=== PATIENT | male | born 1945 | race Caucasian/White ===

== ENCOUNTER → 2023-11-10 13:01 | Outpatient (REF) | payer OTHER, SELFPAY | LOC: RAD 13:01 | PROVIDERS: ATTENDING PHYSICIAN Physician Assistant Medical | DX: M81.0 Age-related osteoporosis without current pathological fracture (principal) | CPT/HCPCS: 77080 ==

== ENCOUNTER → 2024-01-21 09:54 | Outpatient (REF) | payer OTHER, SELFPAY | LOC: PAVMRI 09:54 | PROVIDERS: ATTENDING PHYSICIAN Physical Medicine & Rehabilitation; FAMILY PHYSICIAN Physician Assistant Medical | DX: M54.16 Radiculopathy, lumbar region (principal); M51.26 Other intervertebral disc displacement, lumbar region | CPT/HCPCS: 72148 ==

== ENCOUNTER → 2024-01-27 11:46 | Outpatient (REF) | payer OTHER, SELFPAY | LOC: HWCARD 11:46 | PROVIDERS: ATTENDING PHYSICIAN Physical Medicine & Rehabilitation; FAMILY PHYSICIAN Physician Assistant Medical | DX: Z01.818 Encounter for other preprocedural examination (principal) | CPT/HCPCS: 93005 ==

== ENCOUNTER → 2024-06-08 14:26 | Outpatient (REF) | payer OTHER, SELFPAY | LOC: RAD 14:26 | PROVIDERS: ATTENDING PHYSICIAN Physician Assistant Medical | DX: I83.893 Varicose veins of bilateral lower extremities with other complications (principal); Z98.890 Other specified postprocedural states | CPT/HCPCS: 93970 ==

== ENCOUNTER 2024-06-08 18:46 | Emergency (ER) | payer OTHER, SELFPAY ==
[2024-06-08 18:59] VITALS: BP 166/66
--- NOTE | 2024-06-08 19:05 | ED.GENMED ---
ED Provider Triage
-
Patient seen by provider in Triage?: Seen in Triage
Attestation: A medical screening examination has been initiated by a qualified medical provider. Based on the assessment performed at this time, it has been determined that an emergent medical condition may exist and the patient has been informed
that further medical evaluation and possible additional diagnostic testing may be needed.
HPI: 79-year-old male sent to the ER from outpatient radiology after he had an ultrasound earlier today that showed a popliteal vein DVT in the right lower extremity. This appears to be an unprovoked DVT. Patient notes a history of varicose vein
in the left lower extremity. Denies any trauma, focal weakness or numbness, color changes, recent surgeries, recent travel. Patient does have a history of Crohn's for which he is in remission on Entyvio. No previous GI bleeding or anemia. Will
check labs with anticipation of being discharged on anticoagulants and close follow-up with primary care provider.
GENERAL: Alert , in no apparent distress
EYE: No visual abnormalities.
NECK: Trachea midline
ENT: No visible abnormalities.
LUNGS: No acute respiratory distress
NEUROLOGICAL: Alert and oriented
SKIN: Skin intact. No visible changes.
MUSCULOSKELETAL: Moving extremities normally
PSYCH: Normal and appropriate interaction.
This is a medical evaluation conducted in person to initiate diagnostic evaluation and provide initial therapeutics. Please see further documentation by the treating clinician.
History of Present Illness
General
Chief Complaint: DVT/Possible Blood Clot
Source: patient
Time Seen by Provider: 06/08/24 20:13
History of Present Illness
History of Present Illness:
79-year-old male presenting emergency department for evaluation after he was at outpatient radiology and received an ultrasound of the right lower extremity which showed a DVT to the right popliteal vein. Patient has a history of varicose
veins/spider veins and had noticed some mild and swelling to the right lower extremity which is what prompted him to get the ultrasound. Patient is adamant he does not have any chest pain, shortness of breath, cough, pleurisy, hemoptysis,
exertional dyspnea or any other respiratory concerns. He denies any anticoagulant use. No history of DVT or PE in the past
Past History
Past History
ED Past Medical History: Other (Crohn's disease, diverticulitis, diverticulosis)
ED Past Surgical History: Orthopedic
Social History
Tobacco: Non-smoker
Alcohol: Occasional
Drug: None
Personal:
Living: with family
Review of Systems
Review of Systems
All Other Systems: ROS reviewed and negative except as documented in HPI and ROS
Phy Exam
Physical Exam
Physical Exam:
GENERAL: Alert , in no apparent distress
EYE: conjunctiva clear
Head: Normocephalic atraumatic
NECK: Supple,
ENT: mmm.
LUNGS: no acute respiratory distress
NEUROLOGICAL: Alert and oriented
SKIN: Warm and dry, skin intact.
MUSCULOSKELETAL: Right lower extremity: Mild edema compared to the left. Easily palpable pedal and tibial pulses. Cap refill less than 2 seconds. Mild tenderness to the gastrocnemius. Spider vein noted to the right lower extremity with small
varicose veins as well.
PSYCH: Normal and appropriate interaction.
Scores
Heart Failure Risk
Heart Failure Risk Score: Not Applicable
Heart Score for Chest Pain Patients
STEMI patient?: Not applicable
Withdrawal Assessment of Alcohol
Withdrawal Assessment Completed?: Not applicable
Course
Orders/Labs/Results
Orders:
Orders
06/08/24 19:16
Basic Metabolic Panel Urgent
Complete Blood Count/With Diff Urgent
06/08/24 20:17
Apixaban [Eliquis] 10 mg PO NOW STA
Abnormal Lab Results
06/08/24
19:16
Absolute Monos (auto) 0.7 H 10^3/uL
(0.1-0.6)
Monocytes % 9.5 H %
(1.7-9.3)
BUN 21 H mg/dl
(9-20)
Glucose 102 H mg/dl
(70-99)
06/08/24 19:16
06/08/24 19:16
Vital Signs
Initial and Last Documented VS:
Initial Vital Signs
Temp Pulse Resp BP Pulse Ox
98.0 F 88 20 166/66 97
06/08/24 18:59 06/08/24 18:59 06/08/24 18:59 06/08/24 18:59 06/08/24 18:59
Last Documented Vital Signs
Temp Pulse Resp BP Pulse Ox
98.0 F 88 18 166/66 97
06/08/24 18:59 06/08/24 18:59 06/08/24 20:24 06/08/24 18:59 06/08/24 18:59
MDM/Problems Addressed
Differential Diagnosis Includes:
Known DVT to the right lower extremity. No signs of peripheral arterial disease. No symptoms to suggest pulmonary embolism
MDM/Problems Addressed:
79-year-old male sent to the emergency department after he was found to have a DVT to the right lower popliteal vein. No chest pain, shortness of breath, cough or symptoms suggestive of PE. Patient hemodynamically stable. Labs were ordered which
show a normal hemoglobin and renal function. Will initiate the patient on Eliquis 10 mg p.o. twice daily x 1 week, 5 mg p.o. twice daily for remaining days. Patient advised on potential side effects of anticoagulants as well as safety precautions.
Strongly encourage close outpatient follow-up with primary care provider as patient will likely need close monitoring of the DVT as well as a likely refill of the Eliquis. He was provided with a coupon for free 30-month supply of Eliquis. Aware
of return precautions to the ER.
*Radiology
Radiology exam reviewed: radiology read reviewed
*Pulse Oximetry
Patient hypoxic: no
*Critical Care Note
Total Time (30-74mins, 75-104mins- exclusive of procedures): Not Applicable
ED Attending Note
-
Portions of this chart may have been created with voice recognition software.� Occasional wrong word or��sound alike� substitutions may have occurred due to the inherent limitations of voice recognition software.
Discharge Plan
Departure
Patient Disposition: Home (Routine Discharge)
Date of Disposition: 06/08/24
Time of Disposition: 20:14
Patient with high blood pressure during this ER visit?: Yes
Discharge Problem:
Acute deep vein thrombosis (DVT) of right lower extremity
Instructions: Deep Vein Thrombosis (Blood Clots in the Legs) (DC)
Prescriptions:
New
Eliquis 5 mg tablet
5 mg PO BID Qty: 70 0RF
Rx Instructions:
Take 2 tabs PO BID x 7 days, take 1 tab PO BID remaining
No Action
multivitamin 1 EACH tablet
1 ea PO DAILY
alendronate 70 MG tablet
70 mg PO WEEKLY
enalapril maleate 2.5 MG tablet
2.5 mg PO DAILY
calcium carbonate 500 MG tablet
1,000 mg PO DAILY
pravastatin 20 MG tablet
20 mg PO QPM
Flonase Sensimist 5.9 ML spray,suspension
1 spray NS PRN PRN (Reason: allergies)
L.acidoph,paracasei,B.animalis 1 EACH capsule
1 ea PO DAILY
mupirocin 1 APPLIC ointment
1 applic topical BID Qty: 1 0RF
tamsulosin 0.4 MG capsule
0.4 mg PO HS Qty: 7 0RF
Rx Instructions:
start 3 nights b/f surgery
prednisone 10 MG tablet
40 mg PO TAPER Qty: 20 0RF
Rx Instructions:
take with food
famotidine 20 MG tablet
20 mg PO HS Qty: 30 0RF
oxycodone 5 MG tablet
5 mg PO Q6HPRN PRN (Reason: moderate-severe pain) Qty: 30 0RF
Rx Instructions:
1 tab moderate pain or 2 if pain severe
Dx total joint replacement
ongoing therapy
diazepam 2 mg Tablet
2 mg PO HS PRN (Reason: spasms)
Patient Comments:
for surgery
aspirin 325 mg Tablet
325 mg PO DAILY Qty: 1 0RF
docusate sodium 100 mg Capsule
100 mg PO BID Qty: 1 0RF
magnesium hydroxide 400 mg/5 mL Suspension
30 ml PO DAILYPRN PRN (Reason: constipation) Qty: 1 0RF
sennosides [senna] 8.6 mg Tablet
17.2 mg PO BID Qty: 0 0RF
acetaminophen 325 mg Tablet
650 mg PO Q4HWA Qty: 0 0RF
Entyvio 300 MG/5 ML recon soln
300 mg IV .[id number] Qty: 0 0RF
Rx Instructions:
hold 3 weeks or as advised by surgeon
Interventions
Interventions:
*Risk Screen - Suicide Last Done: 06/08/24 18:59
*General Assessment Last Done: 06/08/24 20:24
*Neglect/Abuse Screening Last Done: 06/08/24 20:24
ED- Fall Risk Assessment Last Done: 06/08/24 20:24
*ED COVID-19 Vaccine History Last Done: 06/08/24 20:24
*Nursing Disposition Last Done: 06/08/24 20:24
ED- Cardiac Assessment Last Done: 06/08/24 20:24
ED- Pulmonary Assessment Last Done: 06/08/24 20:24
ED-Peripheral Vascular Assessment Last Done: 06/08/24 20:24
ED-Skin Assessment Last Done: 06/08/24 20:24
Discharge Date and Time
Discharge Date/Time: 06/08/24 20:25
Print Language: [id number]
[2024-06-08 19:23] LABS: % Basophils 0.7 % (0-2); % Eosinophils 4.9 % (0-6); % Immature Granulocytes 0.1 % (0-0.5); % Lymphocytes 26.4 % (20.5-51.1); % Monocytes 9.5 % (1.7-9.3); % Neutrophils 58.4 % (42.2-75.2); Absolute Basophils 0.1 10^3/uL (0-0.2); Absolute Eosinophils 0.4 10^3/uL (0-0.7); Absolute Monocytes 0.7 10^3/uL (0.1-0.6); Absolute Neutrophils 4.4 10^3/uL (1.4-6.5); Hematocrit 41.8 % (39.0-52.0); Hemoglobin 13.9 g/dL (13.0-18.0); Mean Corp Hgb Conc. 33.3 g/dL (33.0-37.0); Mean Corpuscular Volume 84.3 fL (80.0-94.0); Mean Platelet Volume 9.9 fL (7.4-10.4); Nucleated Red Blood Cells % 0 % (-); Platelet Count 176 10^3/uL (130-400); Red Blood Cell Count 4.96 10^6/uL (4.70-6.10); Red Cell Dist. Width 13.8 % (11.5-14.5); White Blood Cell Count 7.6 10^3/uL (4.8-10.8)
[2024-06-08 19:47] LABS: Blood Urea Nitrogen 21 mg/dl (9-20); Calcium 9.1 mg/dl (8.4-10.2); Carbon Dioxide 26 mmol/L (22-30); Chloride 101 mmol/L (98-107); Glucose 102 mg/dl (70-99); Potassium 4.4 mmol/L (3.5-5.1); Sodium 139 mmol/L (135-145); eGFR 56.58
[2024-06-08] MEDS: ELIQUIS 10 MG PO (20:21)
== END 2024-06-08 20:25 | disposition home or self-care (01) ==
LOC: EMR 18:46
PROVIDERS: Physician Assistant Medical; EMERGENCY PHYSICIAN Emergency Medicine; FAMILY PHYSICIAN Physician Assistant Medical
DX: I82.431 Acute embolism and thrombosis of right popliteal vein (principal); Z87.19 Personal history of other diseases of the digestive system; Z79.899 Other long term (current) drug therapy
CPT/HCPCS: 99283; 80048; 85025